=== PATIENT | male | born 1950 | race Caucasian/White ===

== ENCOUNTER 2018-01-29 11:15 | Emergency (ER) | payer MEDICARE, OTHER ==
[~2018-01-29] VITALS: Ht 177.8 cm; Wt 93.4 kg
[~2018-01-29 11:15] MED LIST: ABILIFY; ABILIFY10 MG PO; ABILIFY20 MG; ABILIFY20 MG PO; ACYCLOVIR 800800 MG PO; ASPIR 8181 M1 PO; COUMADIN 5 MG TA5 MG PO; COUMADIN7.5 MG; DURAGESIC1 EAC2; EFFEXOR 5050 MG/1 T1 PO; ENOXAPARIN100 MG/11 SUBQ; FLOMAX0.4 MG PO; HYDROCODONE-AP1 EAC6 PO; HYDROXYZINE HCL25 M2 PO; ISOPTO TEARS15 ML; LEVAQUIN 500 M500 M2 PO; LISINOPRIL20 MG PO; LOVENOX; MAVIK1 MG PO; MINIPRESS2 MG PO; MYSOLINE50 MG PO; PERCOCET 5-3251 EACH PO; PROSCAR 5MG TABL5 MG; PROSCAR 5MG TABL5 MG PO; REQUIP0.5 MG; ROBAXIN 750 MG750 M1 PO; SEROQUEL; SINEMET 25-1001 EAC1 PO; TYLENOL325 MG PO; VALIUM10 MG PO; VALIUM2 MG PO; VALIUM5 MG; VENLAFAXINE HC100 MG PO; VIAGRA100 MG; VISTARIL 25 MG25 M1 PO; VISTARIL50 MG PO; ZOCOR 10 MG TAB10 MG PO; ZOCOR20 MG PO; ZOFRAN ODT4 MG PO; ZOLOFT100 MG PO; ZOLOFT25 MG PO
[2018-01-29 12:05] LABS: ABSOLUTE BASOPHILS 0.1 thou/uL (0.0-0.2); ABSOLUTE EOSINOPHILS 0.3 thou/uL (0.0-0.7); ABSOLUTE LYMPHOCYTES 1.7 thou/uL (0.8-5.3); ABSOLUTE MONOCYTES 0.6 thou/uL (0.0-1.2); BASOPHILS 2.4 %; HEMATOCRIT 40.6 % (42.0-52.0); HEMOGLOBIN 13.7 gm/dL (14.0-18.0); LYMPHOCYTES 28.9 %; MCH 30.2 pg (26.0-34.0); MCHC 33.7 g/dL (28.0-37.0); MCV 89.6 fL (80.0-100.0); MPV 7.9 fl. (7.2-11.1); NUCLEATED RBCS 0 /100WBC; PLATELET COUNT* 288 thou/uL (150-400); POLYS 52.7 %; RBC 4.53 mil/uL (4.50-6.00); RDW-CV 12.9 % (10.5-14.5); WBC 5.7 thou/uL (4.0-11.0)
[2018-01-29 12:08] LABS: CALCIUM 8.3 mg/dL (8.5-10.1); CREATININE 0.8 mg/dL (0.6-1.3); INR 1.1; PROTIME 10.6 Seconds (9.20-11.50)
[2018-01-29 12:13] LABS: ALBUMIN 3.1 g/dL (3.4-5.0); TOTAL BILIRUBIN 0.2 mg/dL (<0.1-1.0); TOTAL PROTEIN 6.5 g/dL (6.4-8.2)
[2018-01-29 14:05] VITALS: BP 125/76
== END 2018-01-29 14:08 | disposition home or self-care (01) ==
LOC: M.ERS 11:15
PROVIDERS: Physician Assistant Surgical
DX: R10.32 Left lower quadrant pain (principal); M79.89 Other specified soft tissue disorders; Z91.018 Allergy to other foods

== ENCOUNTER 2018-02-03 09:25 | Emergency (ER) | payer MEDICARE, OTHER ==
[~2018-02-03] VITALS: Ht 177.8 cm; Wt 93.0 kg
[2018-02-03] MEDS ORDERED: FLEXERIL PO (10:54)
[2018-02-03] MEDS ORDERED: IBUPROFEN 800800 M1 PO (10:54)
[2018-02-03] MEDS ORDERED: NORCO 5-325 TA1 EACH PO (10:54)
[2018-02-03 11:18] VITALS: BP 143/89
== END 2018-02-03 11:20 | disposition home or self-care (01) ==
LOC: M.ERS 09:25
DX: M54.32 Sciatica, left side (principal); G20 Parkinson's disease; Z91.018 Allergy to other foods

== ENCOUNTER 2018-06-11 14:55 | Emergency (ER) | payer MEDICARE, OTHER ==
[~2018-06-11] VITALS: Ht 177.8 cm; Wt 99.8 kg
[~2018-06-11 14:55] MED LIST changes: +FLEXERIL PO; +IBUPROFEN 800800 M1 PO; +NORCO 5-325 TA1 EACH PO
[2018-06-11] MEDS ORDERED: NORVASC10 MG PO (15:11)
[2018-06-11] MEDS ORDERED: LIPITOR40 MG PO (15:12)
[2018-06-11] MEDS ORDERED: FINASTERIDE5 MG PO (15:12)
[2018-06-11] MEDS ORDERED: PRIMIDONE50 MG PO (15:13)
[2018-06-11] MEDS ORDERED: FLOMAX0.4 MG PO (15:14)
[2018-06-11] MEDS ORDERED: SILDENAFIL CIT100 MG PO (15:14)
[2018-06-11] MEDS ORDERED: FLEXERIL PO (15:18)
[2018-06-11] MEDS ORDERED: MEDROL DOSPAK21 TA1 PO (15:18)
[2018-06-11] MEDS ORDERED: HYDROCODON-ACE1 EAC7 PO (15:18)
[2018-06-11 15:56] VITALS: BP 168/81
== END 2018-06-11 15:56 | disposition home or self-care (01) ==
LOC: M.ERS 14:55
DX: S39.012A Strain of muscle, fascia and tendon of lower back, initial encounter (principal); G20 Parkinson's disease; Z86.718 Personal history of other venous thrombosis and embolism; Z91.018 Allergy to other foods; W08.XXXA Fall from other furniture, initial encounter; Y93.89 Activity, other specified; Y92.89 Other specified places as the place of occurrence of the external cause; Y99.8 Other external cause status

== ENCOUNTER 2018-10-29 17:54 | Emergency (ER) | payer MEDICARE, OTHER ==
[~2018-10-29] VITALS: Ht 177.8 cm; Wt 99.8 kg
[~2018-10-29 17:54] MED LIST changes: +FINASTERIDE5 MG PO; +HYDROCODON-ACE1 EAC7 PO; +LIPITOR40 MG PO; +MEDROL DOSPAK21 TA1 PO; +NORVASC10 MG PO; +PRIMIDONE50 MG PO; +SILDENAFIL CIT100 MG PO
[2018-10-29 17:59] VITALS: BP 0/0
[2018-10-29] MEDS ORDERED: PROMETHAZINE V120 ML PO (18:16)
[2018-10-29] MEDS ORDERED: ZPAK PO (18:16)
[2018-10-29] MEDS ORDERED: PROAIR HFA8.5 GM INH (18:16)
[2018-10-29] MEDS ORDERED: MEDROLDOSEPACK PO (18:16)
[2018-10-29] MEDS ORDERED: TESSALON PERLE100 MG PO (18:16)
[2018-10-29] MEDS ORDERED: ACETAMINOPHEN-1 EAC1 PO (18:19)
--- NOTE | 2018-10-30 10:01 | EKG ---
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
== END 2018-10-29 18:19 | disposition home or self-care (01) ==
LOC: M.ERS 17:54
DX: J20.9 Acute bronchitis, unspecified (principal); N40.0 Benign prostatic hyperplasia without lower urinary tract symptoms; G20 Parkinson's disease; Z91.018 Allergy to other foods; Z86.718 Personal history of other venous thrombosis and embolism

== ENCOUNTER 2018-12-05 02:10 | Inpatient (IN) | payer MEDICARE, OTHER ==
[~2018-12-05] VITALS: Ht 177.8 cm; Wt 95.4 kg
[~2018-12-05 02:10] MED LIST changes: +ACETAMINOPHEN-1 EAC1 PO; +MEDROLDOSEPACK PO; +PROAIR HFA8.5 GM INH; +PROMETHAZINE V120 ML PO; +TESSALON PERLE100 MG PO; +ZPAK PO
[2018-12-05 02:17] VITALS: BP 99/70
[2018-12-05 02:56] LABS: PROTIME 10.7 Seconds (9.20-11.50)
[2018-12-05 03:00] LABS: ALBUMIN 3.3 g/dL (3.4-5.0); ALKALINE PHOSPHATASE 91 U/L (46-116); ANION GAP 9 mmol/L (7-16); BUN 25 mg/dL (7-18); CALCIUM 8.3 mg/dL (8.5-10.1); CHLORIDE 106 mmol/L (98-107); CO2 27 mmol/L (21-32); CREATININE 1.3 mg/dL (0.6-1.3); GLUCOSE 166 mg/dL (70-99); LIPASE 120 U/L (73-393); NT-PRO BRAIN NAT PEPTIDE 18 pg/mL (<300); POTASSIUM 3.6 mmol/L (3.5-5.1); SGOT 15 U/L (15-37); SGPT 8 U/L (30-65); SODIUM 142 mmol/L (136-145); TOTAL BILIRUBIN 0.3 mg/dL (<0.1-1.0); TROPONIN-I LEVEL <0.06 ng/mL (<0.06)
[2018-12-05 03:06] LABS: ABSOLUTE BASOPHILS 0.1 thou/uL (0.0-0.2); ABSOLUTE EOSINOPHILS 0.2 thou/uL (0.0-0.7); ABSOLUTE LYMPHOCYTES 2.8 thou/uL (0.8-5.3); ABSOLUTE MONOCYTES 0.7 thou/uL (0.0-1.2); ABSOLUTE NEUTROPHILS 4.2 thou/uL (1.6-8.1); EOSINOPHILS 2.3 %; HEMATOCRIT 47.2 % (42.0-52.0); HEMOGLOBIN 15.8 gm/dL (14.0-18.0); LYMPHOCYTES 35.6 %; MCH 30.2 pg (26.0-34.0); MCHC 33.4 g/dL (28.0-37.0); MCV 90.3 fL (80.0-100.0); MONOCYTES 8.6 %; MPV 8.4 fl. (7.2-11.1); NUCLEATED RBCS 0 /100WBC; PLATELET COUNT* 314 thou/uL (150-400); POLYS 52.5 %; RBC 5.22 mil/uL (4.50-6.00); RDW-CV 13.7 % (10.5-14.5)
[2018-12-05 06:30] VITALS: BP 126/66
[2018-12-05 06:34] VITALS: BP 110/72
[2018-12-05 06:55] LABS: INFLUENZA A ANTIGEN None Detected (None Detect); INFLUENZA B ANTIGEN None Detected (None Detect)
[2018-12-05] MEDS ORDERED: REFRESH OPTIVE1 EAC2 OPHTHALMIC (07:00)
[2018-12-05] MEDS ORDERED: MINIPRESS2 MG PO (07:02)
[2018-12-05 08:00] VITALS: BP 129/65
--- NOTE | 2018-12-05 10:41 | EKG ---
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: : 1950 Requested By: Tasneem Pate Order Number: [id number] MD: Catrachito Mendez Measurements Intervals [place] Rate: 83 P: 43 ND: 148 QRS: 66 QRSD: 118 T: 63 QT: 371 QTc: 436 Interpretive Statements Sinus rhythm Probable left atrial enlargement Nonspecific intraventricular conduction delay Low voltage, precordial leads Compared to ECG 10/29/2018 18:12:16 Intraventricular conduction delay now present Low QRS voltage now present Electronically Signed On 12-05-2018 10:41:34 CDT by Catrachito Mendez [email or web address] <ELECTRONICALLY SIGNED> By: Catrachito Mendez MD, FACC 12/05/18 1041 9 9 Catrachito Mendez MD, FAC /EPI
[2018-12-05 11:05] LABS: CALCIUM 7.8 mg/dL (8.5-10.1)
[2018-12-05 12:16] VITALS: BP 102/46
--- NOTE | 2018-12-05 16:43 | 2DMMODE ---
[place] [address] 2 D/M-MODE ECHOCARDIOGRAM Name: DEEPAKMYRNA E Room: [address] IN [facility]#: [id number] Admission: 12/05/18 Attend Phys: Greg Tejada, Discharge: Date of : 50 Date of Service: 12/05/18 1642 Report #: [id number] THIS REPORT FOR: //name// APPROVED REPORT Study performed: 12/05/2018 16:04:17 EXAM: Comprehensive 2D, Doppler, and color-flow Echocardiogram Patient Location: In-Patient Room #: 219 Status: routine BSA: 2.15 HR: 73 bpm BP: 102/46 mmHg Rhythm: NSR Other Information Study Quality: Good Indications Syncope edema 2D Dimensions IVSd: 8.99 (7-11mm) LVOT Diam: 21.92 (18-24mm) LVDd: 51.25 mm PWd: 8.19 (7-11mm) Ascending Ao: 30.92 (22-36mm) LVDs: 24.98 (25-40mm) Aortic Root: 34.43 mm Volumes Left Atrial Volume (Systole) LA ESV Index: 21.10 mL/m2 Aortic Valve AoV Peak Harjeet.: 1.83 m/s AO Peak Gr.: 13.35 mmHg LVOT Max P.61 mmHg AO Mean Gr.: 7.37 mmHg LVOT Mean P.07 mmHg LVOT Max V: 1.29 m/s AO V2 VTI: 34.78 cm LVOT Mean V: 0.81 m/s NITISH (VTI): 2.50 cm2 LVOT V1 VTI: 23.06 cm Mitral Valve E/A Ratio: 0.82 MV Decel. Time: 196.83 [place] [address] 2 D/M-MODE ECHOCARDIOGRAM Name: MYRNA SOTELO Room: [address] IN .R.#: [id number] Admission: 12/05/18 Attend Phys: Greg Tejada, Discharge: Date of : 50 Date of Service: 12/05/18 1642 Report #: [id number] MV E Max Harjeet.: 0.98 m/s MV PHT: 57.08 ms MVA (PHT): 3.85 cm2 TDI E/Lateral E': 7.54 E/Medial E': 9.80 Medial E' Harjeet.: 0.10 m/s Lateral E' Harjeet.: 0.13 m/s Pulmonary Valve PV Peak Harjeet.: 1.13 m/s PV Peak Gr.: 5.11 mmHg Tricuspid Valve RAP Estimate: 5.00 mmHg TR Peak Gr.: 26.10 mmHg RVSP: 31.00 mmHg PA Pressure: 31.00 mmHg Left Ventricle The left ventricle is normal size. There is normal LV segmental wall motion. There is normal left ventricular wall thickness. Left ventricular systolic function is normal. The left ventricular ejection fraction is within the normal range. LVEF is 60-65%. Grade I - abnormal relaxation pattern. Right Ventricle The right ventricle is normal size. The right ventricular systolic function is normal. Atria The left atrium size is normal. The right atrium size is normal. Aortic Valve The aortic valve is normal in structure. No aortic regurgitation is present. There is no aortic valvular stenosis. Mitral Valve The mitral valve is normal in structure. Trace mitral regurgitation. No evidence of mitral valve stenosis. Tricuspid Valve The tricuspid valve is normal in structure. Trace tricuspid regurgitation. Mild pulmonary hypertension. Pulmonic Valve The pulmonary valve is normal in structure. [place] [address] 2 D/M-MODE ECHOCARDIOGRAM Name: MYRNA SOTELO Room: [address] IN [facility]#: [id number] Admission: 12/05/18 Attend Phys: Greg Tejada, Discharge: Date of : 50 Date of Service: 12/05/18 1642 Report #: [id number] regurgitation. Great Vessels The aortic root is normal in size. IVC is normal in size and collapses >50% with inspiration. Pericardium There is no pericardial effusion. <Conclusion> LVEF is 60-65%. There is normal LV segmental wall motion. There is no aortic valvular stenosis. No aortic regurgitation is present. Trace mitral regurgitation. Mild pulmonic regurgitation. <ELECTRONICALLY SIGNED> By: Catrachito Mendez MD, FACC 12/05/181641 41 41 Catrachito Mendez MD, FACC /INF
[2018-12-05 17:19] LABS: URINE BILIRUBIN NEGATIVE (Negative); URINE BLOOD NEGATIVE (Negative); URINE CLARITY CLEAR; URINE COLOR YELLOW; URINE GLUCOSE-RANDOM NEGATIVE (Negative); URINE KETONES NEGATIVE (Negative); URINE LEUKOCYTES-REFLEX NEGATIVE (Negative); URINE NITRITE-REFLEX NEGATIVE (Negative); URINE PROTEIN NEGATIVE (Negative); URINE UROBILINOGEN 0.2 E.U./dl (0.2-1.0)
[2018-12-05 20:00] VITALS: BP 101/47
[2018-12-05 23:06] LABS: GLYCOHEMOGLOBIN (HGB A1C) 6.4 % (4.8-5.6)
[2018-12-06] VITALS: BP 128/68
[2018-12-06 04:00] VITALS: BP 141/70
[2018-12-06 05:21] LABS: ABSOLUTE EOSINOPHILS 0.2 thou/uL (0.0-0.7); ABSOLUTE LYMPHOCYTES 1.8 thou/uL (0.8-5.3); ABSOLUTE MONOCYTES 0.4 thou/uL (0.0-1.2); ABSOLUTE NEUTROPHILS 2.7 thou/uL (1.6-8.1); BASOPHILS 0.9 %; EOSINOPHILS 3.6 %; HEMATOCRIT 38.2 % (42.0-52.0); LYMPHOCYTES 34.8 %; MCH 30.5 pg (26.0-34.0); MCHC 34.2 g/dL (28.0-37.0); MCV 89.1 fL (80.0-100.0); MONOCYTES 8.6 %; MPV 8.5 fl. (7.2-11.1); NUCLEATED RBCS 0 /100WBC; PLATELET COUNT* 246 thou/uL (150-400); POLYS 52.1 %; RBC 4.29 mil/uL (4.50-6.00); RDW-CV 13.2 % (10.5-14.5); WBC 5.1 thou/uL (4.0-11.0)
[2018-12-06 05:28] LABS: HEMOGLOBIN 13.1 gm/dL (14.0-18.0)
[2018-12-06 05:29] LABS: CALCIUM 7.6 mg/dL (8.5-10.1); CREATININE 0.8 mg/dL (0.6-1.3); POTASSIUM 3.4 mmol/L (3.5-5.1)
[2018-12-06 08:00] VITALS: BP 133/71
[2018-12-06 12:00] VITALS: BP 149/68
[2018-12-06] MEDS ORDERED: ELIQUIS5 MG PO (13:53)
[2018-12-06 14:06] VITALS: BP 149/68
[2018-12-06 16:00] VITALS: BP 135/69
[2018-12-07] VITALS: BP 121/65
[2018-12-07 04:00] VITALS: BP 116/63
[2018-12-07 08:00] VITALS: BP 143/71
[2018-12-07 09:11] VITALS: BP 143/71
--- NOTE | 2018-12-07 19:12 | EEG ---
[address] [address] EEG STUDY REPORT Name: MYRNA SOTELO Christopher Room: [address] IN M.R.#: [id number] Admission: 12/05/18 Attend Phys: Greg Tejada MD Discharge: 12/07/18 Date of : 50 Report #: [id number] THIS REPORT FOR: //name// CC: Greg Dorsey DATE OF SERVICE: 12/06/2018 This patient is being evaluated for syncope. EEG was done by placing the electrodes by standard 10-20 system of electrode placement. Both referential and sequential montages were used for recording. Background activity in this patient's EEG is about 9 Hz and 30 microvolt. It is a symmetrical activity. The patient became drowsy that is associated with bilateral slowing and vertex sharp waves. Photic stimulation was unremarkable. Throughout the record, no active epileptiform activity was noticed. IMPRESSION: This patient's EEG is intermixed with some theta range slowing on both sides. That is a nonspecific abnormality, which can occur with drowsiness, effect of psychotropic medication, etc. No active epileptiform activity was noticed. Thank you very much for this referral. <ELECTRONICALLY SIGNED> By: Candelario Marte MD 12/07/18 1912 1553 1641Pleydi Marte MD /nt
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
== END 2018-12-07 12:15 | disposition home or self-care (01) | DRG 300 ==
LOC: M.ERS 02:10 → M.TBA-ER 05:45 → M.2W 05:45
PROVIDERS: Emergency Medicine; Internal Medicine; ADMIT Internal Medicine
DX: I82.432 Acute embolism and thrombosis of left popliteal vein (principal); D68.59 Other primary thrombophilia; G20 Parkinson's disease; I95.9 Hypotension, unspecified; E78.5 Hyperlipidemia, unspecified; I10 Essential (primary) hypertension; E86.0 Dehydration; Z90.49 Acquired absence of other specified parts of digestive tract; Z91.02 Food additives allergy status; Z80.7 Family history of other malignant neoplasms of lymphoid, hematopoietic and related tissues; Z79.899 Other long term (current) drug therapy

== ENCOUNTER → 2019-04-02 | Outpatient (CLI) | payer OTHER ==
[~2019-04-02] MED LIST changes: +ELIQUIS5 MG PO; +REFRESH OPTIVE1 EAC2 OPHTHALMIC
== END ==
LOC: M.ULTRA 14:30
DX: R22.42 Localized swelling, mass and lump, left lower limb (principal); M79.605 Pain in left leg

== ENCOUNTER 2019-06-01 15:42 | Emergency (ER) | payer OTHER ==
[~2019-06-01] VITALS: Ht 177.8 cm; Wt 86.2 kg
[2019-06-01 16:36] LABS: ABSOLUTE EOSINOPHILS 0.1 thou/uL (0.0-0.7); ABSOLUTE LYMPHOCYTES 1.3 thou/uL (0.8-5.3); ABSOLUTE MONOCYTES 0.5 thou/uL (0.0-1.2); ABSOLUTE NEUTROPHILS 6.5 thou/uL (1.6-8.1); BASOPHILS 0.4 %; EOSINOPHILS 1.1 %; HEMATOCRIT 40.8 % (42.0-52.0); LYMPHOCYTES 15.1 %; MCH 30.9 pg (26.0-34.0); MCHC 34.2 g/dL (28.0-37.0); MCV 90.1 fL (80.0-100.0); MONOCYTES 6.3 %; MPV 8.4 fl. (7.2-11.1); NUCLEATED RBCS 0 /100WBC; PLATELET COUNT* 279 thou/uL (150-400); POLYS 77.1 %; RBC 4.53 mil/uL (4.50-6.00); RDW-CV 13.2 % (10.5-14.5); WBC 8.5 thou/uL (4.0-11.0)
[2019-06-01 16:40] LABS: CALCIUM 8.6 mg/dL (8.5-10.1); CREATININE 1.3 mg/dL (0.6-1.3); POTASSIUM 3.5 mmol/L (3.5-5.1)
[2019-06-01 16:45] LABS: ALBUMIN 3.4 g/dL (3.4-5.0); TOTAL BILIRUBIN 0.3 mg/dL (<0.1-1.0); TOTAL PROTEIN 6.7 g/dL (6.4-8.2)
[2019-06-01 19:26] VITALS: BP 120/78
--- NOTE | 2019-06-04 16:13 | EKG ---
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: : 1950 Requested By: Jose Guerrero Order Number: [id number] MD: Leroy Miramontes Measurements Intervals [place] Rate: 86 P: 27 OK: 149 QRS: 49 QRSD: 100 T: 50 QT: 375 QTc: 449 Interpretive Statements Sinus rhythm Probable left atrial enlargement Low voltage, precordial leads Baseline wander in lead(s) V1,V2,V3 Compared to ECG 12/05/2018 02:20:03 Intraventricular conduction delay no longer present Electronically Signed On 06-04-2019 16:12:59 CDT by Leroy Miramontes [email or web address] <ELECTRONICALLY SIGNED> By: Leroy Miramontes MD, FACC 06/04/19 1612 160 160 Leroy Miramontes MD, FAC /EPI
== END 2019-06-01 19:26 | disposition home or self-care (01) ==
LOC: M.ERS 15:42
PROVIDERS: Emergency Medicine Emergency Medical Services
DX: R55 Syncope and collapse (principal); I10 Essential (primary) hypertension; E78.5 Hyperlipidemia, unspecified; N40.0 Benign prostatic hyperplasia without lower urinary tract symptoms; Z86.718 Personal history of other venous thrombosis and embolism; Z91.018 Allergy to other foods

== ENCOUNTER 2019-07-12 18:48 | Emergency (ER) | payer OTHER ==
[~2019-07-12] VITALS: Ht 175.3 cm; Wt 90.7 kg
[2019-07-12 20:07] LABS: INFLUENZA A ANTIGEN Negative (Negative); INFLUENZA B ANTIGEN Negative (Negative)
[2019-07-12] MEDS ORDERED: MEDROLDOSEPACK PO (20:10)
[2019-07-12] MEDS ORDERED: AUGMENTIN 875-1 EACH PO (20:10)
[2019-07-12] MEDS ORDERED: PROMETH-CODEIN 65 ML PO (20:14)
[2019-07-12 20:31] VITALS: BP 176/91
== END 2019-07-12 20:32 | disposition home or self-care (01) ==
LOC: M.ERS 18:48
PROVIDERS: Nurse Practitioner Family
DX: J20.9 Acute bronchitis, unspecified (principal); I10 Essential (primary) hypertension; E78.5 Hyperlipidemia, unspecified; G20 Parkinson's disease; Z86.718 Personal history of other venous thrombosis and embolism; Z91.018 Allergy to other foods

== ENCOUNTER 2020-01-21 13:18 | Emergency (ER) | payer OTHER ==
[~2020-01-21] VITALS: Ht 172.7 cm; Wt 86.6 kg
[~2020-01-21 13:18] MED LIST changes: +AUGMENTIN 875-1 EACH PO; +PROMETH-CODEIN 65 ML PO
[2020-01-21 13:55] LABS: ABSOLUTE BASOPHILS 0.1 thou/uL (0.0-0.2); ABSOLUTE EOSINOPHILS 0.2 thou/uL (0.0-0.7); ABSOLUTE LYMPHOCYTES 1.7 thou/uL (0.8-5.3); ABSOLUTE MONOCYTES 0.4 thou/uL (0.0-1.2); ABSOLUTE NEUTROPHILS 3.8 thou/uL (1.6-8.1); BASOPHILS 0.9 %; HEMOGLOBIN 16.4 gm/dL (14.0-18.0); LYMPHOCYTES 28.3 %; MCH 30.6 pg (26.0-34.0); MCHC 34.2 g/dL (28.0-37.0); MCV 89.5 fL (80.0-100.0); MPV 8.1 fl. (7.2-11.1); NUCLEATED RBCS 0 /100WBC; PLATELET COUNT* 354 thou/uL (150-400); POLYS 61.8 %; RBC 5.36 mil/uL (4.50-6.00); RDW-CV 14.2 % (10.5-14.5); WBC 6.1 thou/uL (4.0-11.0)
[2020-01-21 14:04] LABS: CALCIUM 8.9 mg/dL (8.5-10.1); CREATININE 1.2 mg/dL (0.6-1.3)
[2020-01-21 14:08] LABS: APTT 24.7 Seconds (25.0-31.3); PROTIME 10.7 Seconds (9.20-11.50)
[2020-01-21 14:15] LABS: ALBUMIN 3.8 g/dL (3.4-5.0); TOTAL BILIRUBIN 0.8 mg/dL (<0.1-1.0)
--- NOTE | 2020-01-21 15:29 | EKG ---
[place] [address] ELECTROCARDIOGRAM REPORT Name: MYRNA SOTELO RIGOBERTO [id number] Admission: 01/21/20 Attend Phys: Discharge: Date of : 50 Date of Service: 01/21/20 1352 Report #: [id number] THIS REPORT FOR: //name// [facility] ED Test Date: 2020-01-21 Test Time: 13:52:30 Pat Name: MYRNA SOTELO Department: Room: Gender: Director Selection And Administration: JD : 1950 Requested By: Justino Monroy Order Number: [id number] MD: Leroy Mirmaontes Measurements Intervals [place] Rate: 73 P: -54 MS: 190 QRS: 23 QRSD: 102 T: 54 QT: 403 QTc: 444 Interpretive Statements Sinus or ectopic atrial rhythm RSR' in V1 or V2, right VCD or RVH Baseline wander in lead(s) V2 Compared to ECG 06/01/2019 16:02:39 RSR' in V1 or V2 now present Electronically Signed On 01-21-2020 15:27:57 CDT by Leroy Miramontes [email or web address] <ELECTRONICALLY SIGNED> By: Leroy Miramontes MD, FAC 01/21/20 1527 1352 1352 Leroy Miramontes MD, FAC /EPI
[2020-01-21] MEDS ORDERED: KEFLEX500 M1 PO (15:40)
[2020-01-21 16:00] VITALS: BP 146/76
== END 2020-01-21 16:00 | disposition home or self-care (01) ==
LOC: M.ERS 13:18
PROVIDERS: Family Medicine
DX: R42 Dizziness and giddiness (principal); I10 Essential (primary) hypertension; E78.5 Hyperlipidemia, unspecified; H53.8 Other visual disturbances; F43.10 Post-traumatic stress disorder, unspecified; G20 Parkinson's disease; R06.02 Shortness of breath; Z48.00 Encounter for change or removal of nonsurgical wound dressing; Z86.718 Personal history of other venous thrombosis and embolism; Z91.018 Allergy to other foods; Z79.899 Other long term (current) drug therapy

== ENCOUNTER 2020-11-13 17:59 | Emergency (ER) | payer OTHER ==
[~2020-11-13] VITALS: Ht 177.8 cm; Wt 90.7 kg
[~2020-11-13 17:59] MED LIST changes: +KEFLEX500 M1 PO
[2020-11-13 18:40] VITALS: BP 178/91
== END 2020-11-13 18:40 | disposition home or self-care (01) ==
LOC: M.ERS 17:59
DX: M65.342 Trigger finger, left ring finger (principal); I10 Essential (primary) hypertension; E78.5 Hyperlipidemia, unspecified; Z98.890 Other specified postprocedural states; Z90.49 Acquired absence of other specified parts of digestive tract; Z86.718 Personal history of other venous thrombosis and embolism; Z91.018 Allergy to other foods

== ENCOUNTER 2021-09-10 21:03 | Emergency (ER) | payer OTHER ==
[~2021-09-10] VITALS: Ht 177.8 cm; Wt 86.2 kg
[2021-09-11 03:12] LABS: ABSOLUTE EOSINOPHILS 0.2 thou/uL (0.0-0.7); ABSOLUTE NEUTROPHILS 3.3 thou/uL (1.6-8.1); BASOPHILS 0.7 %; EOSINOPHILS 3.5 %; HEMATOCRIT 38.2 % (42.0-52.0); HEMOGLOBIN 12.7 gm/dL (14.0-18.0); LYMPHOCYTES 31.1 %; MCH 29.8 pg (26.0-34.0); MCHC 33.3 g/dL (28.0-37.0); MCV 89.7 fL (80.0-100.0); MONOCYTES 14.9 %; MPV 7.9 fl. (7.2-11.1); NUCLEATED RBCS 0 /100WBC; PLATELET COUNT* 282 thou/uL (150-400); POLYS 49.8 %; RBC 4.26 mil/uL (4.50-6.00); RDW-CV 13.3 % (10.5-14.5); WBC 6.6 thou/uL (4.0-11.0)
[2021-09-11 03:20] LABS: CALCIUM 7.5 mg/dL (8.5-10.1); POTASSIUM 3.6 mmol/L (3.5-5.1)
[2021-09-11 03:23] LABS: INR 1.1; PROTIME 10.9 Seconds (9.20-11.50)
[2021-09-11] MEDS ORDERED: HYDROCODON-ACE1 EAC8 PO (04:03)
[2021-09-11 04:24] VITALS: BP 128/78
[2021-09-11 09:26] LABS: BF LYMPHOCYTES 14 %; BF MONOCYTES 4 %; BF POLYS 78 %; BF TISSUE 1 /100 WBC; BODY FLUID BANDS 4 %
[2021-09-11 09:27] LABS: CLARITY CLOUDY; SOURCE SYNOVIAL; TOTAL VOLUME 10 ml
[2021-09-11 09:28] LABS: BF RBC 772988 /mm3; TOTAL CELL COUNT 12104 /mm3
== END 2021-09-11 04:24 | disposition home or self-care (01) ==
LOC: M.ERS 21:03
PROVIDERS: Emergency Medicine
DX: M25.562 Pain in left knee (principal); I10 Essential (primary) hypertension; E78.5 Hyperlipidemia, unspecified; G20 Parkinson's disease; Z98.890 Other specified postprocedural states; Z90.49 Acquired absence of other specified parts of digestive tract; Z91.018 Allergy to other foods; W01.0XXA Fall on same level from slipping, tripping and stumbling without subsequent striking against object, initial encounter; Y93.89 Activity, other specified; Y92.89 Other specified places as the place of occurrence of the external cause; Y99.8 Other external cause status